=== PATIENT | female | born 1985 | race Asian ===

== ENCOUNTER 2016-09-09 21:52 | Observation (INO) | payer SELFPAY ==
[~2016-09-09] VITALS: Ht 162 cm; Wt 114.8 kg
[2016-09-09 22:49] VITALS: BP 140/81
[2016-09-09] MEDS ORDERED: INFLUENZA VIRUS VACCINE QVS 2016-17 (3YR+)/PF 60 MCG/0.5 ML SYRINGE IM ONE (23:45)
[2016-09-15 05:06] LABS: AMPHETAMINES URINE Positive; METHAMPHETAMINES URINE Positive; UR AMPHETAMINES GC/MS CONFIRM 1298 ng/mL (Cutoff=500); UR METHAMPHETAMINES GC/MS CONF 7240 ng/mL (Cutoff=500)
== END 2016-09-09 23:30 | disposition home or self-care (01) ==
LOC: 4S 21:52
PROVIDERS: ADMIT Obstetrics & Gynecology; ATTEND Obstetrics & Gynecology
DX: O26.893 Other specified pregnancy related conditions, third trimester (principal); R10.9 Unspecified abdominal pain; O62.9 Abnormality of forces of labor, unspecified; Z3A.39 39 weeks gestation of pregnancy
CPT/HCPCS: 59025; 80307 ×8; 80324; G0378